=== PATIENT | female | born 1935 | race Hispanic/Latino ===

== ENCOUNTER 2022-05-05 08:14 | Inpatient (IN) | payer MEDICARE, BC, OTHER ==
[2022-05-05] MEDS ORDERED: Bisacodyl 5 MG TAB PO PRN (20:56)
[2022-05-05] MEDS ORDERED: Ondansetron ODT 4 MG TAB SL PRN (20:56)
[2022-05-05] MEDS ORDERED: Senokot S 8.6-50 MG TAB PO PRN (20:56)
[2022-05-05] MEDS: DorzolamidE/Timolol 2%/0.5% Ophth Soln 10 ml Bottle EA EYE SCH (21:44)
[2022-05-05] MEDS: Atorvastatin Calcium 40 MG TAB PO SCH (21:44)
[2022-05-05] MEDS: Latanoprost 0.005% Ophth Soln 2.5 ml Bottle EA EYE SCH (21:44)
[2022-05-05] MEDS: Metoprolol Tartrate 50 MG TAB PO SCH (21:45)
[2022-05-05] MEDS: Famotidine 20 MG TAB PO SCH (21:45)
[2022-05-05] MEDS: hydrALAZINE 25 MG TAB PO SCH (21:45)
[2022-05-06 06:21] LABS: #Basophils 0.1 thou/uL (0.0-0.2); #Lymphocytes 1.2 thou/uL (1.20-3.40); #Monocytes 0.8 thou/uL (0.11-0.59); #Neutrophils 6.5 thou/uL (1.40-6.50); %Basophils 0.9 % (0.0-1.0); %Eosinophils 0.4 % (0.0-10.0); %Lymphocytes 13.5 % (21.0-51.0); %Neutrophils 76.2 % (42.0-75.0); Mean Corpuscular HGB CONC 33.3 g/dL (32.0-36.0); Mean Corpuscular Hemoglobin 30.7 pg (27.0-31.0); Mean Corpuscular Volume 92.1 fl (78.0-98.0); Mean Platelet Volume 8.4 fL (7.4-10.4); Platelet Count 258 10x3/uL (130-400); RBC Distribution Width 12.3 % (11.5-14.5); Red Blood Cell (RBC) Count 3.91 mill/uL (4.20-5.40); White Blood Cell (WBC) Count 8.6 10x3/uL (4.8-10.8)
[2022-05-06 06:40] LABS: ALT (SGPT) 47 U/L (8-55); AST (SGOT) 32 U/L (5-34); Albumin 3.1 g/dL (3.4-4.8); Alkaline Phosphatase 92 U/L (40-110); Anion Gap 11 mmol/L (10-20); BUN (Urea Nitrogen) 11 mg/dL (9.8-20.1); Bilirubin, Total 0.9 mg/dL (0.2-1.2); Calc. Creatinine Clearance 86 mL/min (70-130); Calcium 9.1 mg/dL (7.8-10.44); Carbon Dioxide 27 mmol/L (23-31); Chloride 109 mmol/L (98-107); Estimated GFR 88; Globulin 2.7 g/dL (2.4-3.5); Glucose 124 mg/dL (83-110); Protein, Total 5.8 g/dL (5.8-8.1); Sodium 144 mmol/L (136-145)
[2022-05-06] MEDS: DorzolamidE/Timolol 2%/0.5% Ophth Soln 10 ml Bottle EA EYE SCH ×2 (08:19→20:21)
[2022-05-06] MEDS: hydrALAZINE 25 MG TAB PO SCH ×3 (08:21→20:23)
[2022-05-06] MEDS: Losartan 25 MG TAB PO SCH (08:23)
[2022-05-06] MEDS: Amlodipine 5 MG TAB PO SCH (08:24)
[2022-05-06] MEDS: Potassium Chloride 20 MEQ TAB PO SCH (08:27)
[2022-05-06] MEDS: Metoprolol Tartrate 50 MG TAB PO SCH ×2 (08:29→20:49)
[2022-05-06] MEDS: Famotidine 20 MG TAB PO SCH ×2 (08:30→20:23)
[2022-05-06] MEDS: Lansoprazole 3 MG/ML ORAL SUSPENSION PO SCH (08:31)
[2022-05-06] MEDS ORDERED: Potassium Chloride 20 MEQ TAB PO SCH (15:30)
[2022-05-06] MEDS: Latanoprost 0.005% Ophth Soln 2.5 ml Bottle EA EYE SCH (20:22)
[2022-05-06] MEDS: Atorvastatin Calcium 40 MG TAB PO SCH (20:23)
[2022-05-07] MEDS: Losartan 25 MG TAB PO SCH (07:53)
[2022-05-07] MEDS: Amlodipine 5 MG TAB PO SCH (07:53)
[2022-05-07] MEDS: hydrALAZINE 25 MG TAB PO SCH ×3 (07:53→21:12)
[2022-05-07] MEDS: Metoprolol Tartrate 50 MG TAB PO SCH ×2 (07:54→21:12)
[2022-05-07 07:55] LABS: Anion Gap 13 mmol/L (10-20); BUN (Urea Nitrogen) 9 mg/dL (9.8-20.1); Calc. Creatinine Clearance 80 mL/min (70-130); Calcium 9.3 mg/dL (7.8-10.44); Carbon Dioxide 28 mmol/L (23-31); Chloride 106 mmol/L (98-107); Estimated GFR 87; Glucose 133 mg/dL (83-110); Potassium 3.2 mmol/L (3.5-5.1); Sodium 144 mmol/L (136-145)
[2022-05-07] MEDS: Acetaminophen 325 MG TAB PO PRN ×2 (09:27→21:13)
[2022-05-07] MEDS: DorzolamidE/Timolol 2%/0.5% Ophth Soln 10 ml Bottle EA EYE SCH ×2 (12:03→21:10)
[2022-05-07] MEDS: Lansoprazole 3 MG/ML ORAL SUSPENSION PO SCH (12:06)
[2022-05-07] MEDS: Famotidine 20 MG TAB PO SCH ×3 (12:13→21:12)
[2022-05-07] MEDS: Potassium Chloride 20 MEQ TAB PO SCH ×2 (12:13→13:00)
[2022-05-07] MEDS: Latanoprost 0.005% Ophth Soln 2.5 ml Bottle EA EYE SCH (21:10)
[2022-05-07] MEDS: Atorvastatin Calcium 40 MG TAB PO SCH (21:12)
[2022-05-08 05:34] LABS: #Basophils 0.1 thou/uL (0.0-0.2); #Lymphocytes 0.7 thou/uL (1.20-3.40); #Monocytes 1.5 thou/uL (0.11-0.59); #Neutrophils 7.9 thou/uL (1.40-6.50); %Basophils 0.7 % (0.0-1.0); %Eosinophils 0.2 % (0.0-10.0); %Lymphocytes 7.2 % (21.0-51.0); %Monocytes 14.4 % (0.0-10.0); %Neutrophils 77.5 % (42.0-75.0); Hemoglobin 11.3 g/dL (12.0-16.0); Mean Corpuscular HGB CONC 34.6 g/dL (32.0-36.0); Mean Corpuscular Volume 89.6 fl (78.0-98.0); Mean Platelet Volume 8.1 fL (7.4-10.4); Platelet Count 214 10x3/uL (130-400); RBC Distribution Width 12.5 % (11.5-14.5); Red Blood Cell (RBC) Count 3.64 mill/uL (4.20-5.40); White Blood Cell (WBC) Count 10.2 10x3/uL (4.8-10.8)
[2022-05-08 05:48] LABS: Anion Gap 10 mmol/L (10-20); BUN (Urea Nitrogen) 9 mg/dL (9.8-20.1); Calc. Creatinine Clearance 92 mL/min (70-130); Calcium 9.1 mg/dL (7.8-10.44); Carbon Dioxide 28 mmol/L (23-31); Chloride 106 mmol/L (98-107); Estimated GFR 90; Glucose 127 mg/dL (83-110)
[2022-05-08 05:52] LABS: Sodium 141 mmol/L (136-145)
[2022-05-08] MEDS ORDERED: Potassium Bicarbonate/Cit Ac 20 MEQ TAB PO SCH (09:00)
[2022-05-08] MEDS: Losartan 25 MG TAB PO SCH (09:50)
[2022-05-08] MEDS: Metoprolol Tartrate 50 MG TAB PO SCH ×2 (09:50→20:26)
[2022-05-08] MEDS: Amlodipine 5 MG TAB PO SCH (09:50)
[2022-05-08] MEDS: DorzolamidE/Timolol 2%/0.5% Ophth Soln 10 ml Bottle EA EYE SCH ×2 (09:51→20:57)
[2022-05-08] MEDS: hydrALAZINE 25 MG TAB PO SCH ×3 (09:51→20:26)
[2022-05-08] MEDS: Famotidine 20 MG TAB PO SCH ×2 (09:51→20:26)
[2022-05-08] MEDS: Lansoprazole 3 MG/ML ORAL SUSPENSION PO SCH (09:52)
[2022-05-08] MEDS ORDERED: Potassium Bicarbonate/Cit Ac 25 MEQ TAB PO SCH (11:00)
[2022-05-08 11:20] LABS: CKMB 2.5 ng/mL (0-6.6)
[2022-05-08 14:28] LABS: Troponin I 0.054 ng/mL (< 0.028)
[2022-05-08 17:22] LABS: Troponin I 0.049 ng/mL (< 0.028)
[2022-05-08] MEDS: Latanoprost 0.005% Ophth Soln 2.5 ml Bottle EA EYE SCH (20:26)
[2022-05-08] MEDS: Atorvastatin Calcium 40 MG TAB PO SCH (20:26)
[2022-05-09 05:51] LABS: Carbon Dioxide 27 mmol/L (23-31); Glucose 126 mg/dL (83-110); Sodium 138 mmol/L (136-145)
[2022-05-09 05:53] LABS: Anion Gap 12 mmol/L (10-20); BUN (Urea Nitrogen) 12 mg/dL (9.8-20.1); Calc. Creatinine Clearance 84 mL/min (70-130); Calcium 8.9 mg/dL (7.8-10.44); Chloride 102 mmol/L (98-107); Estimated GFR 88; Magnesium 1.9 mg/dL (1.6-2.6); Potassium 3.1 mmol/L (3.5-5.1)
[2022-05-09] MEDS: Acetaminophen 325 MG TAB PO PRN (06:24)
[2022-05-09] MEDS: Lansoprazole 3 MG/ML ORAL SUSPENSION PO SCH (08:08)
[2022-05-09] MEDS: Potassium Bicarbonate/Cit Ac 25 MEQ TAB PO SCH (08:12)
[2022-05-09] MEDS: hydrALAZINE 25 MG TAB PO SCH ×3 (08:15→20:35)
[2022-05-09] MEDS: Famotidine 20 MG TAB PO SCH ×2 (08:15→20:36)
[2022-05-09] MEDS: Amlodipine 10 MG TAB PO SCH (08:15)
[2022-05-09] MEDS: Losartan 25 MG TAB PO SCH (08:16)
[2022-05-09] MEDS: Metoprolol Tartrate 50 MG TAB PO SCH ×2 (08:16→20:35)
[2022-05-09] MEDS: DorzolamidE/Timolol 2%/0.5% Ophth Soln 10 ml Bottle EA EYE SCH ×2 (08:29→21:44)
[2022-05-09] MEDS: Atorvastatin Calcium 40 MG TAB PO SCH (20:35)
[2022-05-09] MEDS: Latanoprost 0.005% Ophth Soln 2.5 ml Bottle EA EYE SCH (20:36)
[2022-05-10 05:38] LABS: Anion Gap 12 mmol/L (10-20); BUN (Urea Nitrogen) 10 mg/dL (9.8-20.1); Calc. Creatinine Clearance 84 mL/min (70-130); Calcium 8.7 mg/dL (7.8-10.44); Carbon Dioxide 25 mmol/L (23-31); Chloride 101 mmol/L (98-107); Estimated GFR 88; Potassium 3.2 mmol/L (3.5-5.1)
[2022-05-10 05:41] LABS: Sodium 135 mmol/L (136-145)
[2022-05-10 05:42] LABS: Glucose 137 mg/dL (83-110)
[2022-05-10 06:40] VITALS: BMI 33.3
[2022-05-10] MEDS: Amlodipine 10 MG TAB PO SCH (09:24)
[2022-05-10] MEDS: Metoprolol Tartrate 50 MG TAB PO SCH ×2 (09:25→22:51)
[2022-05-10] MEDS: hydrALAZINE 25 MG TAB PO SCH ×3 (09:26→22:51)
[2022-05-10] MEDS: Famotidine 20 MG TAB PO SCH ×2 (09:27→22:51)
[2022-05-10] MEDS: Losartan 25 MG TAB PO SCH (09:27)
[2022-05-10] MEDS: Potassium Bicarbonate/Cit Ac 25 MEQ TAB PO SCH (09:28)
[2022-05-10] MEDS: Lansoprazole 3 MG/ML ORAL SUSPENSION PO SCH (09:29)
[2022-05-10] MEDS: DorzolamidE/Timolol 2%/0.5% Ophth Soln 10 ml Bottle EA EYE SCH ×2 (09:45→22:51)
[2022-05-10] MEDS ORDERED: Potassium Chloride 20 MEQ TAB PO SCH (11:00)
[2022-05-10] MEDS ORDERED: Furosemide 20 MG TAB PO SCH (11:00)
[2022-05-10 20:19] LABS: Hemoglobin 10.6 g/dL (12.0-16.0); Mean Corpuscular Hemoglobin 30.8 pg (27.0-31.0); Mean Corpuscular Volume 89.4 fl (78.0-98.0); Red Blood Cell (RBC) Count 3.44 mill/uL (4.20-5.40); White Blood Cell (WBC) Count 15.9 10x3/uL (4.8-10.8)
[2022-05-10 20:20] LABS: MDiff Complete? YES; Manual Diff?? YES; Mean Corpuscular HGB CONC 34.4 g/dL (32.0-36.0); Mean Platelet Volume 8.4 fL (7.4-10.4); Platelet Count 209 10x3/uL (130-400); RBC Distribution Width 12.3 % (11.5-14.5)
[2022-05-10 20:25] LABS: Band 1 % (5-11); Lymphocytes 7 % (21-51); Monocytes 16 % (0-10); Neutrophil 76 % (42-75)
[2022-05-10 20:26] LABS: ALT (SGPT) 29 U/L (8-55); AST (SGOT) 30 U/L (5-34); Albumin 2.9 g/dL (3.4-4.8); Alkaline Phosphatase 85 U/L (40-110); Anion Gap 13 mmol/L (10-20); BUN (Urea Nitrogen) 11 mg/dL (9.8-20.1); Bilirubin, Total 1.1 mg/dL (0.2-1.2); Calc. Creatinine Clearance 79 mL/min (70-130); Calcium 8.8 mg/dL (7.8-10.44); Carbon Dioxide 25 mmol/L (23-31); Chloride 100 mmol/L (98-107); Estimated GFR 86; Globulin 2.9 g/dL (2.4-3.5); Glucose 140 mg/dL (83-110); Potassium 3.7 mmol/L (3.5-5.1); Protein, Total 5.8 g/dL (5.8-8.1); Sodium 134 mmol/L (136-145)
[2022-05-10 20:27] LABS: Platelet Morphology Comment Appears Adequate; Toxic Granulation SLIGHT; Vacuoles SLIGHT
[2022-05-10] MEDS ORDERED: Cefepime 2 GM in Sodium Chloride 0.9% 100 ML IVPB SCH (21:00)
[2022-05-10] MEDS ORDERED: Acetaminophen 650 MG Suppository PR PRN (21:12)
[2022-05-10 21:58] LABS: Bilirubin Negative (Negative); Blood, Urine Trace (Negative); Glucose, Urine (Dipstick) Negative (Negative); Ketone, Urine Trace mg/dL (Negative); Leukocyte Moderate (Negative); Nitrite Negative (Negative); Protein, Urine (Dipstick) 30 mg/dL (Neg-Trace); Specific Gravity, Urine 1.015 (1.005-1.030); Urobilinogen > or = 8.0 mg/dL (Less than 2); pH, Urine 7.5 (5.0-9.0)
[2022-05-10 22:05] LABS: Clarity Hazy (Clear)
[2022-05-10 22:06] LABS: Bacteria/HPF Rare-Few HPF (None Seen); WBC/HPF 21-50 HPF (0-3)
[2022-05-10] MEDS ORDERED: Lactated Ringer's 1,000 ML IV SCH (22:15)
[2022-05-10] MEDS ORDERED: Lidocaine 1% (PF) 30 ML VIAL ONE (22:22)
[2022-05-10] MEDS: Atorvastatin Calcium 40 MG TAB PO SCH (22:50)
[2022-05-10] MEDS: Latanoprost 0.005% Ophth Soln 2.5 ml Bottle EA EYE SCH (22:51)
[2022-05-10 23:39] LABS: CSF, Glucose 64 mg/dl (40-70); CSF, Protein 33 mg/dL (15-40)
[2022-05-10 23:41] VITALS: BP 134/67; TEMP 97.4
[2022-05-10 23:51] LABS: CSF Source CSF; Clarity Clear (Clear); Tube # 4
== END 2022-05-10 23:53 | disposition short-term general hospital (02) | DRG 947 ==
LOC: NAV ACUTE 18:36
PROVIDERS: ADMIT Family Medicine; ATTEND Family Medicine
DX: R53.1 Weakness (principal); A41.9 Sepsis, unspecified organism; J96.01 Acute respiratory failure with hypoxia; U07.1 COVID-19; I10 Essential (primary) hypertension; E78.5 Hyperlipidemia, unspecified; M81.0 Age-related osteoporosis without current pathological fracture; F32.A Depression, unspecified; Z98.890 Other specified postprocedural states; E87.6 Hypokalemia; H40.9 Unspecified glaucoma; Z90.710 Acquired absence of both cervix and uterus; Z90.49 Acquired absence of other specified parts of digestive tract
CPT/HCPCS: 36415; 36416; 70450; 80048; 80053; 81001; 82553; 82945; 83735; 84157; 84484; 85025; 87040; 87070; 87077; 87086; 87205; 89051; J0692; J2001; J3370; J3490; J7050